=== PATIENT | female | born 2005 | race Caucasian/White ===

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

== ENCOUNTER 2023-09-20 13:04 | Emergency (ER) | payer OTHER, SELFPAY ==
[2023-09-20 13:23] VITALS: BP 97/72; PULSE 94; RESP 16; TEMP 36.4; O2SAT 100
--- NOTE | 2023-09-20 13:25 | ED.URI ---
HPI - URI/Sore Throat General Chief Complaint: Upper Respiratory Infection Stated Complaint: Sinus Infection symptoms Time Seen by Provider: 09/20/23 13:54 Source: patient and RN notes reviewed Mode of arrival: ambulatory Limitations: no limitations History of Present Illness HPI Narrative: 18-year-old female presents with concern for sinus congestion, drainage, sore throat, ear pain. She reports about 3 day history of symptoms. She reports she has been taking allergy medicine without relief. MD elicited complaint: nasal congestion Related Data Allergies Allergy/AdvReac Type Severity Reaction Status Date / Time No Known Allergies Allergy Verified 09/20/23 13:26 Review of Systems Review of Systems: CONSTITUTIONAL: Denies malaise, chills, sweats, or fever. EYES: Denies visual changes, redness, or discharge. ENT: Reports rhinorrhea, congestion, otalgia and sore throat. CARDIOVASCULAR: Denies chest pain, palpitations, or edema. RESPIRATORY: Reports mild cough. Denies dyspnea. GASTROINTESTINAL: Denies abdominal pain, nausea, vomiting, diarrhea SKIN: Denies rash or itching. MUSCULOSKELETAL: Denies myalgia. NEUROLOGIC: Denies headache. All systems reviewed & are unremarkable except as noted in HPI and below PMFSH Social History Social History (Updated 09/12/22 @ 21:18 by Jane Michel NP) Smoking status: Current every day smoker Tobacco type: e-cigarettes/vaping Alcohol intake: unknown Substance use: unknown Gender identity (if verbalized by the patient): Female Comments At time of signature, agree with nursing past medical, surgical, social and family history. There is no relevant family history pertinent to the presenting complaint Exam Narrative: GENERAL: Well-appearing, well-nourished, and in no acute distress. HEAD: Normocephalic EYES: PERRLA, conjunctivae clear ENT: Nares clear, turbinates edematous and erythematous, clear discharge. Mucous membranes moist. Right tM pearly salcedo with dull light reflex, left TM erythematous and bulging; no tragal tenderness. Oropharynx not erythematous without lesions. Tonsils not enlarged and without exudate, no drooling, no hoarseness, no trismus, uvula midline. NECK: Supple. No lymphadenopathy CHEST: Clear to auscultation, breath sounds equal. No wheezing, rhonchi, rales, or stridor. No respiratory distress, speaks in full sentences. HEART: Regular rate and rhythm. No murmur heard. SKIN: Warm, dry, no rash. NEURO: Alert and oriented x3. PSYCH: Normal mood and affect Course Course Emergency Course: Patient is aware of diagnosis, understands and agrees to treatment plan. Anticipatory guidance given. Patient agrees to follow-up as directed and is aware of reasons to seek care at the emergency department. Portions of this record may have been created with voice recognition software Level of Care: Express Care Visit Vital Signs Vital signs: Vital Signs Temperature 97.5 F L 09/20/23 13:23 Pulse Rate 94 09/20/23 13:23 Respiratory Rate 16 09/20/23 13:23 Blood Pressure 97/72 L 09/20/23 13:23 Pulse Oximetry 100 09/20/23 13:23 Oxygen Delivery Room Air 09/20/23 13:23 Temperature 97.5 F L 09/20/23 13:23 Pulse Rate 94 09/20/23 13:23 Respiratory Rate 16 09/20/23 13:23 Blood Pressure 97/72 L 09/20/23 13:23 Pulse Oximetry 100 09/20/23 13:23 Oxygen Delivery Room Air 09/20/23 13:23 Reviewed. MDM - URI/Sore Throat MDM Narrative Medical decision making narrative: Differential diagnosis considered: Miller virus, strep pharyngitis, allergic rhinitis, upper respiratory tract infection, sinusitis, rhinosinusitis, nasopharyngitis. viral pharyngitis, otitis media, otitis externa, pneumonia, bronchitis, viral cough syndrome, viral syndrome, and influenza. Exam findings show no acute concerns or changes; patient is non-toxic appearing and is in no distress. Patient is appropriate for outpatient treatment and follow-up. Lab Data
[2023-09-20 13:28] VITALS: BP 97/72; PULSE 94; RESP 16; TEMP 36.4; O2SAT 100
== END 2023-09-20 13:57 | disposition home or self-care (01) ==
PROVIDERS: Emergency Provider Nurse Practitioner
DX: H66.90 Otitis media, unspecified, unspecified ear (principal); F17.290 Nicotine dependence, other tobacco product, uncomplicated
CPT/HCPCS: 87081; 87426; 87804; 87880; 99213; C9803; G0463

== ENCOUNTER 2025-06-17 07:34 | Emergency (ER) | payer OTHER, SELFPAY ==
--- NOTE | ~2025-06-17 | XR_ITS ---
Examination: XR foot LT min 3V Clinical History: pain/injury Comparison: None Technique: 4 views left foot Findings/impression: 1. Tiny avulsion fracture along dorsal surface of navicular. 2. No other fracture or acute abnormality identified. Reviewed, dictated and finalized at location R.
[2025-06-17 07:35] VITALS: BP 115/64; PULSE 74; RESP 18; TEMP 36.6; O2SAT 98
--- NOTE | 2025-06-17 07:37 | ED.LOWEXIN ---
HPI - Extremity Injury (Lower) General Chief Complaint: Extremity Injury, Lower Stated Complaint: foot injury Time Seen by Provider: 06/17/25 07:35 Source: patient and family Mode of arrival: ambulatory Limitations: no limitations History of Present Illness HPI Narrative: Patient is a 19-year-old female with left foot instep injury prior to arrival. She missed the last step and twisted the top of the foot inward. She has pain and swelling and ecchymosis. MD complaint: foot injury (Left) Onset (ago): minute(s) (30) Type of Injury: inversion Place: home Severity: moderate Severity scale (1-10): 4 Relieving factors: immobilization Exacerbating factors: movement Context: fall Associated symptoms: swelling and able to partially bear weight Other symptoms: none Treatments prior to arrival: cold therapy Related Data Allergies Allergy/AdvReac Type Severity Reaction Status Date / Time No Known Allergies Allergy Verified 06/17/25 07:42 Review of Systems Review of Systems: All systems reviewed & are unremarkable except as noted in HPI and below Constitutional: Constitutional: Reports no additional constitutional complaints Eyes: Eyes: Reports no additional eye complaints ENT: Reports system reviewed and no additional complaints, except as documented Cardiovascular: Cardiovascular: Reports no additional cardiovascular complaints Respiratory: Respiratory: Reports no additional respiratory complaints Gastrointestinal: Gastrointestinal: Reports no additional gastrointestinal complaints Genitourinary: Genitourinary: Reports no additional female genitourinary complaints Musculoskeletal: Musculoskeletal: Reports no additional musculoskeletal complaints Integumentary/Breasts: Skin/Breast: Reports system reviewed and no additional complaints, except as docu Neurologic: Reports system reviewed and no additional complaints, except as documented Psychiatric: Psychiatric: Reports no additional psychiatric complaints Endocrine: Endocrine: Reports no additional endocrine complaints Hematologic/Lymphatic: Hematologic/Lymphatic: Reports no additional hematologic/lymphatic complaints Allergic/Immunologic: Allergic/Immunologic: Reports no additional allergic/immunologic complaints PMFSH Social History Social History Smoking status: Current every day smoker Tobacco type: e-cigarettes/vaping Alcohol intake: unknown Substance use: unknown Gender identity (if verbalized by the patient): Female Exam Const: General: healthy appearing Nutritional Appearance: well nourished Orientation/consciousness: patient oriented x3 HENMT: Head: normal to inspection Ears: external ears normal Face/Nose/Sinus: Normal external nose present Eyes: Conjunctivae: conjunctivae normal Pupils: Equal, round and reactive pupils present EOM: EOMs intact bilaterally Neck: Neck: normal visual inspection Chest: Chest palpation & inspection: normal inspection of the chest Resp: Effort & Inspection: normal respiratory effort and not labored Auscultation: clear to auscultation bilaterally and no crackles Cardio: Rate: regular rate Rhythm: regular rhythm Heart sounds: no murmurs GI: Inspection: non-distended GI Palp: Yes Soft to palpation and No Tenderness to palpation present (GI) Auscultation: normal bowel sounds : General: Yes bladder normal to palpation Back/Spine/Pelvis: Back: no CVA tenderness Skin: General skin exam: No normal color Rashes: no rashes Wounds: no wounds Neuro: General: patient oriented x3, moves all extremities and no meningeal signs Extrem: General: abnormal to inspection, no clubbing, cyanosis or edema and no pedal edema Other: Left foot top of foot medial aspect has a large area of ecchymosis and swelling with tenderness; distally neurovascularly intact Psych: Mental Status: mental status grossly normal Affect: normal affect Attitude: cooperative Course Vital Signs Vital signs: Vital Signs Temperature 36.6 C 06/17/25 07:35 Pulse Rate 74 06/17/25 07:35 Respiratory Rate 18 06/17/25 07:35 Blood Pressure 115/64 06/17/25 07:35 Pulse Oximetry 98 06/17/25 07:35 Oxygen Delivery Room Air 06/17/25 07:35 Temperature 36.6 C 06/17/25 07:35 Pulse Rate 74 06/17/25 07:35 Respiratory Rate 18 06/17/25 07:35 Blood Pressure 115/64 06/17/25 07:35 Pulse Oximetry 98 06/17/25 07:35 Oxygen Delivery Room Air 06/17/25 07:35 MDM - Extremity Injury (Lower) MDM Narrative Medical decision making narrative: Patient is a 19-year-old female with left foot injury prior to arrival. X-ray. Imaging Data Attestation: I personally reviewed and interpreted this imaging study as follows: Radiologist's impression: X-ray left foot shows Findings/impression: 1. Tiny avulsion fracture along dorsal surface of navicular. 2. No other fracture or acute abnormality identified. Discharge Plan Discharge Clinical Impression: Avulsion fracture of navicular bone of foot Qualifiers: Encounter type: initial encounter Fracture type: closed Laterality: left Qualified Code(s): S92.252A - Displaced fracture of navicular [scaphoid] of left foot, initial encounter for closed fracture Patient Disposition: Home Condition: Stable Instructions: Avulsion Fracture (ED) Additional Instructions: Please wear shoe and Bobby for the next 2 weeks. Use rest, ice, elevation and compression using the boot and the Bobby. Ibuprofen and Tylenol. Patient Language: Belarusian Follow-up/Referrals: UNKNOWN,DOCTOR [Non-Staff] Stand Alone Forms: Work/School Release IP Time of Disposition: 09:24
--- OUTSIDE RECORDS SUMMARY | 2025-06-17 07:38 | XMS_ITS | Clinical Summary ---
Author Organization [facility] Address [facility] [place] [address] Care Team Providers Care Adding Machine Operator Name Role Phone Maureen Guillermo MD Primary Care Provider [phone] Dominguez Vo MD Unavailable Allergies No known active allergies Medications etonogestrel (NEXPLANON) 68 MG SC implant 1 each by Implant route once. Active Active Problems Problem Noted Date Diagnosed Date Toe pain, bilateral 02/17/2021 Numbness of right foot 02/17/2021 Family History Medical History Relation Comments Stroke Paternal Grandmother Relation Status Comments Father Alive Maternal Grandfather Alive Maternal Grandmother Alive Mother Alive Paternal Grandfather Alive Paternal Grandmother Social History Tobacco Use Types Packs/Day Years Used Date Smoking Tobacco: Never Smokeless Tobacco: Never Alcohol Use Standard Drinks/Week Comments Never 0 (1 standard drink = 0.6 oz pur e alcohol) Comments No Sex and Gender Information Value Date Recorded Sex Assigned at Not on file Legal Sex Female 5:15 PM CDT Gender Identity Not on file Sexual Orientation Not on file Occupation Industry Job Start Date Job End Date works at [employer] Not on file Not on file Not on file Last Filed Vital Signs Vital Sign Reading Time Taken Comments Blood Pressure 106/54 04/21/2021 1:24 PM CDT Pulse 58 04/21/2021 1:24 PM CDT Temperature 35.9 C (96.6 F) 01/29/2021 5:31 PM CDT Respiratory Rate 16 04/21/2021 1:24 PM CDT Oxygen Saturation 99% 01/29/2021 8:00 PM CDT Inhaled Oxygen Concentration - - Weight 71.9 kg (158 lb 9.6 oz) 04/21/2021 1:24 P M CDT Height 172.7 cm (5' 8) 04/21/2021 1:24 PM CDT Body Mass Index 24.12 04/21/2021 1:24 PM CDT Plan of Treatment Health Maintenance Due Date Last Done Comments Cervical Cancer Screening Pa p Smear (Age 21 to 29) Every 3 Years 2003 Cervical Cancer Screening 2003 Annual Physical 2006 HPV Vaccines (1 - 3-dose series) 2018 Meningococcal B Vaccine (1 o f 2 - Standard) 2019 Hepatitis C 2021 DTaP, Tdap and Td Vaccines ( 1 - Tdap) 2022 Hepatitis B Vaccines (1 of 3 - 19+ 3-dose series) 2022 COVID-19 Vaccine (3 - 2024-2 6 season) 2025 01/27/2021, 01/06/2021 Meningococcal Vaccine Aged Out No darwin alex eligible based on patient's age to complete this topic Pneumococcal Vaccine: Pediatrics (0 to 5 Years) and At-Risk Patients (6 to 49 Years) Aged Out No longer eligible b ased on patient's age to complete this topic RSV Immunizations Under 20 Months Aged Out No longer eligible b ased on patient's age to complete this topic Care Teams Adding Machine Operator Relationship Specialty Start Date End Date Maureen Guillermo MD [address] [place] [address] [phone] PCP - General FAMILY PRACTICE 01/29/21 Dominguez Vo MD [address] [place] [address] [phone] Vascular/Alcohol Law Enforcement Agent INTERNAL MEDICINE 02/11/21
--- OUTSIDE RECORDS SUMMARY | 2025-06-17 08:13 | XMS_ITS | Clinical Summary ---
Author Organization [facility] Address [facility] [place] [address] Care Team Providers Care Air Conditioning Unit Tester Name Role Phone Maureen Guillermo MD Primary Care Provider [phone] Dominguez Vo MD Unavailable Allergies No known [...] Start Date Job End Date works at [employer] Not on file Not on file Not [...] age to complete this topic Care Teams Air Conditioning Unit Tester Relationship Specialty Start Date End Date Maureen Guillermo MD [address] [phone] PCP - General FAMILY PRACTICE 01/29/21 Dominguez Vo MD [address] [place] [place] [phone] Vascular/Manager Program INTERNAL MEDICINE 02/11/21
[2025-06-17 09:27] VITALS: BP 127/88; PULSE 63; RESP 16; TEMP 36.6; O2SAT 97
== END 2025-06-17 09:32 | disposition home or self-care (01) ==
PROVIDERS: Emergency Provider Emergency Medicine; Referring Provider Family Medicine
DX: S92.252A Displaced fracture of navicular [scaphoid] of left foot, initial encounter for closed fracture (principal); F17.290 Nicotine dependence, other tobacco product, uncomplicated; W10.9XXA Fall (on) (from) unspecified stairs and steps, initial encounter
CPT/HCPCS: 73630; 99284